=== PATIENT | female | born 1945 | race Caucasian/White ===

== ENCOUNTER 2016-08-15 07:59 | Emergency (ER) | payer MEDICARE, OTHER ==
[2016-08-15] MEDS ORDERED: traMADol HCL 50 MG TABLET PO ONE (08:29)
[2016-08-15] MEDS ORDERED: KETOROLAC TROMETHAMINE 60 MG/2 ML VIAL IM ONE ×2 (08:29→08:40)
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
[2016-08-15] MEDS ORDERED: traMADol HCL 50 MG TABLET ONE (08:41)
[2016-08-15 09:27] VITALS: BP 138/57
== END 2016-08-15 09:32 | disposition home or self-care (01) ==
LOC: ER 07:59
DX: S83.92XA Sprain of unspecified site of left knee, initial encounter (principal); M79.605 Pain in left leg; W19.XXXA Unspecified fall, initial encounter